=== PATIENT | female | born 1980 | race Two or more races ===

== ENCOUNTER 2016-03-29 17:59 | Emergency (ER) | payer OTHER ==
[2016-03-29] MEDS ORDERED: PROPARACAINE HCL 0.5% 300 GTTS/BOT SOLN.DROP ONE (18:33)
[2016-03-29] MEDS ORDERED: ACETAMINOPHEN 325 MG TABLET ONE (19:09)
[2016-03-29] MEDS ORDERED: CLINDAMYCIN HCL 150 MG CAPSULE ONE (19:09)
== END 2016-03-29 19:35 | disposition home or self-care (01) ==
LOC: ED 17:59
DX: L03.213 Periorbital cellulitis (principal)
CPT/HCPCS: 99283 ×2; A9270 ×3

== ENCOUNTER 2016-05-15 18:08 | Emergency (ER) | payer OTHER ==
[2016-05-15] MEDS ORDERED: IBUPROFEN 800 MG TABLET ONE (18:40)
--- NOTE | 2016-05-15 19:54 | RAD ---
Exams: Three-view right wrist and three-view right hand COMPARISON: 02/06/2014, 08/15/2013 INDICATION: Right hand and wrist pain post fall. TECHNIQUE: PA, lateral and oblique views of the right wrist and PA, lateral and oblique views of the right hand were obtained. FINDINGS: Mild soft tissue swelling seen over the ulnar aspect of the hand. There is a mildly comminuted angulated fracture involving the fifth metacarpal neck, which demonstrates up to 70 degrees of volar angulation of the distal fracture fragment. There is no intra-articular extension. No additional fracture is identified within the right hand. Carpal alignment is maintained. No apparent soft tissue swelling about the wrist. No fracture is identified within the wrist. IMPRESSION: Angulated, comminuted fracture of the fifth metacarpal neck. No acute osseous abnormality in the right wrist.
== END 2016-05-15 20:27 | disposition home or self-care (01) ==
LOC: ED 18:08
DX: S62.306A Unspecified fracture of fifth metacarpal bone, right hand, initial encounter for closed fracture (principal); Y93.79 Activity, other specified sports and athletics
CPT/HCPCS: 73130; 73110; 99283 ×2; 26605 ×2; 29125; A9270

== ENCOUNTER 2016-06-06 12:29 | Day surgery (SDC) | payer OTHER ==
--- NOTE | 2016-06-05 11:20 | HP ---
DATE OF CLINIC: 05/31/2016 LULU ARITA : 1980 PLANNED PROCEDURE: Right 5th Metacarpal Fracture Closed Reduction with Possible Open Reduction with Percutaneous Pinning DATE OF SURGERY: June 06, 2016 SURGEON: Darren De Luna M.D. PCP: [facility] HISTORY OF PRESENT ILLNESS Lulu Knowles is a 35 year old female. * Medication list reviewed with patient allergy list reviewed with patient. * Has not tried NSAIDS * Has not tried Physical Therapy * Has not tried Injections This 35-year-old right-hand dominant female is seen today for injury to her right fifth finger, date of injury May 14, 2016. The patient was doing a hand stand, her finger got caught, she rolled over on top of it. She had immediate onset of pain and subsequent swelling. She was seen in the emergency room at [facility]. She does state that she did have a reduction and was placed in a splint. Unfortunately she has taken her split off several days ago. She still complains of moderate degrees of pain. She denies any other areas of concern for injury, no wrist pain, elbow pain, shoulder pain. She did not hit her head or lose consciousness. 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 CURRENT MEDICATION * None PAST MEDICAL/SURGICAL HISTORY Reported: Medical: Stomach problems peptic- H Pylori ( Heliocbacter Pylori ) treated by Dr. Brady and renal history Stones. Surgical / Procedural: No prior surgery. SOCIAL HISTORY Behavioral: Not a current smoker and not chewing tobacco. Never smoked. Smoking status: Never smoker. Alcohol: No consumption of alcohol. Drug Use: Not using drugs. 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 ALLERGIES * Penicillin Reaction: Cannot breathe- Severe reaction No reaction to anesthetics. FAMILY HISTORY 5 children living Family medical history Mother- Hypertension REVIEW OF SYSTEMS Systemic: No fever and no recent weight change. Head: No head symptoms. Cardiovascular: No cardiovascular symptoms, no chest pain or discomfort, and no palpitations. Pulmonary: No pulmonary symptoms, no cough, and no wheezing. Gastrointestinal: No gastrointestinal symptoms. Neurological: No motor disturbances and no sensory disturbances. Psychological: No psychological symptoms, no anxiety, and no depression. Skin: No skin lesions and no rash. PHYSICAL FINDINGS * Vitals taken 05/31/2016 01:19 pm BP-Sitting R 126/76 mmHg Pulse Rate-Sitting 64 bpm Temp-Oral 98.4 F Height 64 in Weight 184 lbs 6.4 oz Body Mass Index 31.7 kg/m2 Body Surface Area 1.89 m2 Pain Level 7 Eyes: General/bilateral: Extraocular Movements: * Normal. Ears, Nose, Throat: * ENT: normal. Lungs: * Clear to auscultation. * No wheezing was heard. * No rales/crackles were heard. Cardiovascular: Heart Rate and Rhythm: * Normal. * Heart rate was normal. * Heart rhythm regular. Abdomen: Palpation: * Abdominal non-tender. Neurological: Motor: * Dominant Hand = Right Hand. The hand is checked. She has a flexed posture of her fifth and fourth finger, flexed at the PIP joint, extension on the MCP joint, flexion of the PIP joint. She has mild residual swelling. She is tender over the fifth metacarpal head neck, there is no tenderness at the distal ulna. No snuffbox tenderness. No radial side wrist tenderness, no other areas of soreness to palpation. She has restriction of range of motion extension of PIP lagging about 20 degrees, DIP I can get her passively about 5 degrees shy of full extension. Flexion shows rotational deformity with overlapping and radial deviation of the fifth finger. Pulse and sensation is intact. The patient is also seen and examined by Dr. De Luna today given the rotational nature of her finger. TESTS * Test: COMPREHENSIVE METABOLIC PANEL Report Date: 05/31/2016 ALT/SGPT 8 U/L ALBUMIN 4.4 g/dL ALB/GLOB RATIO 1.5 BUN 9 mg/dL BUN/CREAT RATIO 15 CALCIUM 9.2 mg/dL GLUCOSE 89 mg/dL CREATININE 0.6 mg/dL SODIUM 135 meq/L POTASSIUM 3.8 meq/L CHLORIDE 104 meq/L CARBON DIOXIDE 27 meq/L ANION GAP 8 meq/L TOT PROTEIN 7.3 g/dL GLOBULIN 2.9 g/dL BILI,TOTAL 0.7 mg/dL AST/SGOT 12 U/L Low ALK PHOSPHATASE 60 U/L GFR 114 High * Test: CBC WITH DIFF Report Date: 05/31/2016 WBC 8.3 10*3/mL BASOPHIL 0.8 % RBC 4.59 10*6/uL NEUTROPHILS 73.2 % MCH 30.7 pg MCHC 33.7 g/dL RDW 12.4 % MCV 91.1 fL PLATELET COUNT 284 10*3/mL IMM NEUT % 0.2 % IMM NEUT # 0.0 10*3/mL MONOCYTES 7.0 % EOSINOPHIL 2.7 % HCT 41.8 % HGB 14.1 g/L LYMPHOCYTE 16.1 % ANC 6.1 10*3/mL X-ray reviewed on [facility]. Please see radiologist interpretation. They show fifth metacarpal head and neck fracture with angulation and some rotational deformity. ASSESSMENT Displaced angulated and rotated right fifth metacarpal neck fracture. THERAPY * Patient not eligible for fall risk assessment. PLAN Right closed reduction with possible open reduction with percutaneous pinning right fifth metacarpal fracture. A lengthy discussion was had with her today with regards to findings. Given the rotational deformity I recommend closed-reduction with probable pinning, a possible open reduction if unable to get appropriate position with it being closed. Anticipate 3 to 4 weeks with pins and then subsequent pin removal and therapy, etcetera. She will report to the operating room this next week. Discussed with patient in detail the limitations, expectations as well as risks and possible complications of surgery including, but not limited to wound problems or infection, neurovascular injury, continue (knee) (hip) pain or dysfunction including the possibility of prosthetic wear or failure over time that may require additional operative or non-operative treatment. Patient also realizes the perioperative risks including risks associated with anesthesia and would like to proceed. A full PAR conference was held, questions and concerns addressed and informed consent was obtained. Patient will be sent from my office for completion of the preoperative workup. CARE TEAM Need To Load Need to Load Ph.D.Medical Genetics Felicia Brady MD Specialist SURGICAL CONSENT We have discussed surgical options including Closed vs Open reduction and fixation of 5th metacarpal fracture , and non-operative management. The patient was counseled in detail regarding the diagnosis, treatment options available, prognosis of each treatment option and the potential risks and complications. The risks of surgery include, but are not limited to, anesthetic , neurovascular complications, pulmonary embolism, deep vein thrombosis, wound dehiscence, failure of any or all of the discussed procedures, infection of the joint or surrounding soft tissue, need for revision surgery, chronic pain, limitations in activities of daily living, inability to return to work, and loss of normal range of motion or functional use of the extremity. There is the possibility of failure over time that may require additional operative or non-operative treatment. The patient acknowledged that there are a number of perioperative risks not mentioned here and would still like to proceed. The patient is aware of and understands these risks, and wishes to proceed with the proposed surgical procedure and other procedures as indicated at the time of surgery. We will have the patient see their PCP for a preoperative medical risk assessment. The preoperative instructions were reviewed with the patient and all questions were answered. TMR/sg
[~2016-06-06 12:29] MED LIST: BUPIVACAINE 0.5% (PRES FREE) 30 ML VIAL ONE
[2016-06-06] MEDS ORDERED: CLINDAMYCIN 900 MG PREMIX 100 ML IV PRN (12:30)
[2016-06-06] MEDS ORDERED: IV START KIT ONE ×2 (12:30→14:31)
[2016-06-06] MEDS ORDERED: LACTATED RINGERS 1,000 ML ONE (12:31)
[2016-06-06] MEDS ORDERED: CLINDAMYCIN 900 MG PREMIX 0 ML IV ONE (12:36)
[2016-06-06] MEDS ORDERED: CLINDAMYCIN 900 MG PREMIX 50 ML IV ONE (12:59)
[2016-06-06] MEDS ORDERED: FENTANYL 100 MCG/2 ML VIAL ONE ×2 (14:19→16:41)
[2016-06-06] MEDS ORDERED: MIDAZOLAM HCL 1 MG/ML 2ML VIAL ONE (14:19)
[2016-06-06] MEDS ORDERED: SODIUM CHLORIDE 0.9% FLUSH 10 ML ONE (14:34)
[2016-06-06] MEDS ORDERED: LIDOCAINE 0.5% (PRES FREE) 50 ML VIAL ONE (14:37)
[2016-06-06] MEDS ORDERED: ONDANSETRON 4 MG/2ML 2 ML VIAL ONE ×2 (16:04→17:14)
[2016-06-06] MEDS ORDERED: PROPOFOL 40 ML IV ONE (16:04)
[2016-06-06] MEDS ORDERED: LIDOCAINE 2% (PRES FREE) 5 ML VIAL ONE (16:04)
[2016-06-06] MEDS ORDERED: PROMETHAZINE HCL 25 MG/ML VIAL IM PRN (16:08)
[2016-06-06] MEDS ORDERED: ONDANSETRON 4 MG/2ML 2 ML VIAL IV PRN ×2 (16:08→16:58)
[2016-06-06] MEDS ORDERED: FENTANYL 100 MCG/2 ML VIAL IV PRN (16:08)
[2016-06-06] MEDS ORDERED: ATROPINE SULFATE 0.4 MG/1 ML VIAL IV PRN (16:08)
[2016-06-06] MEDS ORDERED: NALOXONE HCL 0.4 MG/ML VIAL IV PRN (16:08)
[2016-06-06] MEDS ORDERED: HYDROMORPHONE HCL 1 MG/ML SYRINGE IV PRN (16:08)
[2016-06-06] MEDS ORDERED: LACTATED RINGERS 1,000 ML IV SCH (16:15)
--- NOTE | 2016-06-06 16:54 | RAD ---
FINGER RIGHT HISTORY: Intraoperative repair of fifth metacarpal fracture. COMPARISONS: Plain film exam dated 05/31/2016. FINDINGS: Intraoperative fluoroscopic images were performed demonstrating K wire fixation of the fracture involving the distal fifth metacarpal. A total of 27 seconds of fluoroscopy was utilized for the examination. IMPRESSION: 1. Intraoperative fluoroscopy for K wire fixation of a fracture involving the distal fifth metacarpal.
[2016-06-06] MEDS ORDERED: ACETAMINOPHEN 325 MG TABLET PO PRN (16:58)
[2016-06-06] MEDS ORDERED: KETOROLAC TROMETHAMINE 30 MG/ML 1 ML VIAL IV PRN (16:58)
[2016-06-06] MEDS ORDERED: HYDROCODONE/ACETAMINOPHEN 5/325MG TABLET PO PRN (16:58)
[2016-06-06] MEDS ORDERED: SODIUM CHLORIDE 0.9% 1,000 ML IV SCH (17:00)
[2016-06-06] MEDS ORDERED: KETOROLAC TROMETHAMINE 30 MG/ML 1 ML VIAL ONE (17:14)
--- NOTE | 2016-06-06 17:23 | PCMBPN ---
Brief Post Op Note: Date of Procedure: 06/06/16 Preoperative Diagnosis: RD5 MC fx Postoperative Diagnosis: 1. [Same] Procedure: CR/PP RD5 MC fx Surgeon: Darren De Luna MD Anesthesia: IV block (Markus) Condition: stable to PAR Complications: none IV Fluids: per anesthesia Estimated Blood Loss: nil Tourniquet Time: 35 minutes Specimens: [N/A] Implants: k-wire Drains: [N/A]
[2016-06-06] MEDS ORDERED: HYDROCODONE/ACETAMINOPHEN 5/325MG TABLET ONE ×2 (17:57→18:02)
--- NOTE | 2016-06-07 10:10 | OP ---
LULU ARITA [id number] : 1980 DATE OF SURGERY: June 06, 2016 PREOPERATIVE DIAGNOSIS: Right subacute displaced 5th metacarpal fracture. POSTOPERATIVE DIAGNOSIS: SAME PROCEDURE: Closed reduction and percutaneous pinning, right 5th displaced subacute metacarpal fracture. SURGEON: Darren De Luna M.D. ESTIMATED BLOOD LOSS: Nil ANESTHESIA: IV block per Markus TOURNIQUET TIME: Approximately 35 minutes. FLUIDS: IV fluid placed per anesthesia. DRAINS: None COMPLICATIONS: None INDICATIONS: Patient is a 35-year-old female who sustained a 5th metacarpal fracture while playing soccer 05/14/16. She was seen last week, radiographs and exam demonstrated a displaced distal 5th metacarpal fracture. There was a significant rotatory component. Recommendation to proceed with closed reduction and percutaneous pinning vs. ORIF. PAR conference was held, questions and concerns addressed and informed consent obtained. For additional details please refer to dictated preop H&P. PROCEDURAL DESCRIPTION: Patient was taken to the OR. Sedation with monitored anesthesia. Tourniquet was applied to the proximal arm. The arm was exsanguinated and an IV block placed per anesthesia after inflation of the tourniquet. The upper extremity was then prepped and draped out in the usual sterile fashion. Preoperative IV antibiotics were given empirically. After sterile prep and drape Biplanar fluoroscopic imaging was utilized. I was able to effect a closed reduction with the volar displacement of the distal fragment as well as the rotatory component. Once position was reasonable I placed an IM 0.062 K-wire placed percutaneously from distal to proximal provisionally. A second K-wire was then placed into the unstable distal metacarpal head fragment affecting it with a reduction maneuver and the MCP flexed maximally. Once I was happy with position I was able to joystick this into position, remove the first K-wire and then pass this in an IM fashion transfixing the fracture in near anatomic reduction. This was confirmed with Biplanar fluoroscopic imaging as well as clinical exam from the standpoint of rotatory deformity. Satisfied, we bent and cut this K-wire, placed a well-padded dressing followed by a well formed ulnar gutter splint in an intrinsic plus position capturing the 4th and 5th digits. Tourniquet was then sequentially released. The patient was then transferred to her hospital bed and sent to post anesthesia recovery in stable condition. She tolerated the procedure well. Sponge, instrument and needle counts were correct. LIVAN/mrw CC: Poly Ackerman MD
== END 2016-06-06 18:32 | disposition home or self-care (01) ==
LOC: SDC 12:29
PROVIDERS: ATTEND Orthopaedic Surgery
PROC: 0PSP34Z Reposition Right Metacarpal with Internal Fixation Device, Percutaneous Approach (ICD-10-PCS; principal; 2016-06-06)
DX: S62.336A Displaced fracture of neck of fifth metacarpal bone, right hand, initial encounter for closed fracture (principal); X50.0XXA Overexertion from strenuous movement or load, initial encounter; Z88.0 Allergy status to penicillin

== ENCOUNTER 2016-06-12 10:26 | Emergency (ER) | payer OTHER ==
--- NOTE | 2016-06-12 12:14 | RAD ---
Indications: Fracture followup. Right fifth digit status post ORIF. Comparison: Plain films same back to 05/17/2016. Findings: 3 images of the right hand were obtained. Study is limited with respect osseous detail secondary to overlying cast material. K wire transfixes the distal metacarpal fracture. Bridging callus formation is thought to be present. No periosteal reaction. Remainder the visualized hand is unremarkable. No new fracture or dislocation. Impression: Fracture followup as above.
== END 2016-06-12 12:26 | disposition home or self-care (01) ==
LOC: ED 10:26
DX: G89.18 Other acute postprocedural pain (principal)